=== PATIENT | female | born 1995 | race Caucasian/White ===

== ENCOUNTER → 2019-07-25 12:48 | Outpatient (BNVA) | payer BC, SELFPAY | PROVIDERS: Family Provider Nurse Practitioner Family; Visit Provider Nurse Practitioner Psychiatric/Mental Health | DX: F90.0 Attention-deficit hyperactivity disorder, predominantly inattentive type (principal) | CPT/HCPCS: 99212 ==

== ENCOUNTER → 2019-10-10 08:32 | Outpatient (BNVA) | payer BC, SELFPAY | PROVIDERS: Family Provider Nurse Practitioner Family; Visit Provider Nurse Practitioner Psychiatric/Mental Health | DX: F90.0 Attention-deficit hyperactivity disorder, predominantly inattentive type (principal) | CPT/HCPCS: 99212 ==

== ENCOUNTER → 2020-01-07 10:36 | Outpatient (BNVA) | payer BC, SELFPAY | PROVIDERS: Family Provider Nurse Practitioner Family; Visit Provider Nurse Practitioner Psychiatric/Mental Health | DX: F90.0 Attention-deficit hyperactivity disorder, predominantly inattentive type (principal) | CPT/HCPCS: G0463 ==

== ENCOUNTER 2021-06-08 01:50 | Emergency (ER) | payer OTHER, SELFPAY ==
[2021-06-08 01:59] VITALS: BP 131/85; PULSE 68; RESP 18; TEMP 36.1; O2SAT 98; BMI 39.1
--- NOTE | 2021-06-08 03:41 | USCV_ITS ---
Tamia Abarca Age: 26 Gender: F : 1995 Exam Date: 06/08/2021 04:14 Ordering Phys: Vladimir Hernandez MD Technologist: LEANNA Exam Location: [facility] – [place] Indication: Left calf pain HISTORY: Lower extremity pain. PROCEDURES: Venous duplex imaging was performed in only the left lower extremity. The following venous structures were evaluated: common femoral vein, profunda vein, proximal portion of the greater saphenous vein, superficial femoral vein, and the popliteal vein. In addition, the posterior tibial and peroneal trunk were evaluated. FINDINGS: Normal 2-D Doppler and augmentation and compressibility throughout the lower extremity venous structures. Additional imaging through the proximal calf veins also reveals no thrombus. Limited evaluation of the greater saphenous vein is patent with no thrombus. CONCLUSIONS No DVT left lower extremity. Dr. Aura Puente DO (Electronically Signed) Final Date: 08 June 2021 07:57 S
--- NOTE | 2021-06-08 03:49 | W.ED.EXTPRO ---
HPI - Extremity Problem General: Chief complaint: Extremity Problem,Nontraumatic Stated complaint: Pain in legs,headache Time Seen by Provider: 06/08/21 03:18 Source: patient Mode of arrival: ambulatory Limitations: no limitations History of Present Illness: 26-year-old female states she been having left leg pain left swelling in her left calf with tenderness to touch. Mother states that family history of blood clots she is concerned that she has a DVT. States pain is currently a 4 out of 10 states she also had a headache earlier today that since resolved. She had no fever denies any chest pain or shortness of breath denies any worsening proving factors. Associated symptoms: Deny chest pain, fever(s) or rash Review of Systems Const: Denies: fever(s), chills, body aches or change in appetite Eyes: Denies: blurry vision or eye discomfort ENMT: Denies: throat pain or dental pain Card: Denies: chest pain Resp: Denies: dyspnea GI: Denies: abdominal pain, nausea, vomiting or diarrhea : Denies: dysuria Musc: Reports: extremity pain and extremity swelling Skin/Breast: Denies: rash Neuro: Reports: headache(s) Psych: Denies: depression Mark/Lymph: Denies: easy bruising All/Imm: Denies: urticaria PFSH ED PFSH: Medical History ADHD (attention deficit hyperactivity disorder), inattentive type Social History Smoking and tobacco status: never smoked Second hand smoke exposure: No Physical Exam Const: COMMON NORMALS: no acute distress, patient oriented x3 and healthy appearing HENMT: COMMON NORMALS: normocephalic and atraumatic HEAD & SCALP: normocephalic and atraumatic Eye: COMMON NORMALS: Equal, round and reactive pupils present and EOMs intact bilaterally PUPIL: Yes Equal, round and reactive pupils present Neck/C-Spine: COMMON NORMALS: full ROM and supple Chest: COMMONS NORMALS: normal inspection of the chest and normal palpation of entire chest wall Resp: COMMON NORMALS: normal respiratory effort, No retractions, No use of accessory muscles and clear to auscultation bilaterally AUSCULTATION: clear to auscultation bilaterally Cardio: COMMON NORMALS: regular rate, regular rhythm and No murmurs present (Cardio) RATE: regular rate RHYTHM: regular rhythm GI: COMMON NORMALS: Normal to inspection, nondistended, normoactive bowel sounds present, Soft to palpation, non-tender and no masses PALPATION: Yes Soft to palpation Extremity: COMMON NORMALS: normal to inspection and full ROM NARRATIVE EXTREMITY EXAM: Slight tenderness to left calf distal pulses intact Neuro: COMMON NORMALS: patient oriented x3, moves all extremities and no focal motor deficits Psych: COMMON NORMALS: mental status grossly normal, Normal thought process present and cooperative THOUGHT PROCESS: Normal thought process present Skin: COMMON NORMALS: no rashes or lesions noted and no wounds GENERAL SKIN EXAM: no rashes or lesions noted Course Vital Signs: Vital signs: Vital Signs Temperature 97 F L 06/08/21 01:59 Pulse Rate 68 06/08/21 01:59 Respiratory Rate 18 06/08/21 01:59 Blood Pressure 131/85 06/08/21 01:59 Pulse Oximetry 98 06/08/21 01:59 MDM - Extremity (Nontraumatic) Medical Decision Making Patient presents here with left leg pain likely muscle pain exam here is benign ultrasound showed no DVT she had good pulses. No signs of cellulitis or septic joint she stable for discharge is to follow-up PCP and return if worsening. Discharge Plan Discharge Patient Disposition: Home Clinical Impression: Left leg pain Condition: Stable Prescriptions: New Naprosyn 500 mg tablet 500 mg PO BID PRN (Reason: pain) Qty: 20 0RF No Action dexmethylphenidate [Focalin XR] 20 mg capsule,ER biphasic 50-50 20 mg PO QAM 30 Days Qty: 30 0RF Rx Instructions: Take 1 capsule by mouth each morning dexmethylphenidate [Focalin XR] 20 mg capsule,ER biphasic 50-50 20 mg PO QAM 30 Days Qty: 30 0RF Rx Instructions: Take 1 capsule by mouth each morning dexmethylphenidate [Focalin XR] 20 mg capsule,ER biphasic 50-50 20 mg PO QAM 30 Days Qty: 30 0RF Rx Instructions: Take 1 capsule by mouth each morning Discharge Orders: Discharge ED (Routine); Ordered 06/08/21 Ordered By: Vladimir Hernandez Referrals: Quita Roth FNP [Primary Care Provider] - 1-3 days Discharge Diet: Advance as tolerated Discharge Activity: Resume usual activity Patient Instructions: Leg Pain (ED) Coding Level of Care Code ED Tab 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
[2021-06-08] MEDS: ketorolac 30 mg/mL INJ IM (03:51)
[2021-06-08 04:59] VITALS: BP 112/68; PULSE 59; RESP 16; O2SAT 97
== END 2021-06-08 05:00 | disposition home or self-care (01) ==
PROVIDERS: Emergency Provider Emergency Medicine; PCP Nurse Practitioner Family
DX: M79.605 Pain in left leg (principal)
CPT/HCPCS: 93971; 96372; 99283; J1885